=== PATIENT | female | born 1980 | race Caucasian/White ===

== ENCOUNTER 2017-10-07 17:25 | Emergency (ER) | payer MEDICAID, MEDICARE ==
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
[2017-10-07] MEDS ORDERED: Adacel (T-DAP) 0.5 ML VIAL ONE (19:40)
[2017-10-07] MEDS ORDERED: Ketorolac Tromethamine 60 MG/2 ML VIAL ONE (19:57)
[2017-10-07] MEDS ORDERED: Lidocaine 1% PF 5 ML VIAL ONE (21:11)
[2017-10-07] MEDS ORDERED: Bacitracin Zinc 1 Packet ONE (22:18)
== END 2017-10-07 23:18 | disposition home or self-care (01) ==
LOC: ERS 17:25
DX: S01.81XA Laceration without foreign body of other part of head, initial encounter (principal); S01.91XA Laceration without foreign body of unspecified part of head, initial encounter; F17.210 Nicotine dependence, cigarettes, uncomplicated; F31.9 Bipolar disorder, unspecified; Z79.899 Other long term (current) drug therapy; Y00.XXXA Assault by blunt object, initial encounter
CPT/HCPCS: 12002; 12015; 70450; 70486; 90471; 90715; 96372; J1885; J2001

== ENCOUNTER 2018-02-01 12:57 | Emergency (ER) | payer MEDICARE ==
[2018-02-01] MEDS ORDERED: Lidocaine 4% Cream 5 GM TUBE w/ Tegaderm ONE (13:11)
[2018-02-01] MEDS ORDERED: Lidocaine 1% PF 5 ML VIAL ONE (13:11)
[2018-02-01] MEDS ORDERED: Bacitracin Zinc 1 Packet ONE (13:21)
== END 2018-02-01 13:28 | disposition home or self-care (01) ==
LOC: ERS 12:57
DX: S01.511A Laceration without foreign body of lip, initial encounter (principal); F17.210 Nicotine dependence, cigarettes, uncomplicated; F31.9 Bipolar disorder, unspecified; Z79.899 Other long term (current) drug therapy; Z71.6 Tobacco abuse counseling; W08.XXXA Fall from other furniture, initial encounter
CPT/HCPCS: 99406; J2001